=== PATIENT | female | born 1955 | race Caucasian/White ===

== ENCOUNTER → 2017-01-20 | Outpatient (CLI) | payer OTHER ==
[~2017-01-20] MED LIST: ATARAX PO; CHLORTHALIDONE25 MG PO; ENDOCET 5-3251 EACH PO; GABAPENTIN300 M2 PO; KEFLEX500 M2 PO; LISINOPRIL PO; PERCOCET 5/321 UDTAB PO; PROZAC PO; PROZAC10 M1 PO; XARELTO10 MG PO
--- NOTE | ~2017-01-20 | NM71 ---
[facility] A Service of [facility] & [facility] RADIOLOGY TEXT RESULTS PATIENT: TRACY VILLAFANA LOCATION: [facility] : 53 UNIT #: [id number] AGE: [address]: Dima PerezM SEX: F ORDER DR: [id number] [facility] [address] [place], [place] [address] [id number] O MR#: [id number] Acc #: [id number] NAME: TRACY VILLAFANA : 1955 SEX: F STUDY DATE/TIME: 01/20/2017 12:51 UNIT: [facility] ROOM: STUDY DESCRIPTION: MN Radiopharm Loc Inflam Limit Attending Physician: Dima Perez D.P.M. Referring Physician: Dima Perez D.P.M. Ordering Physician: Dima Perez D.P.M. Primary Care Physician: Generic Doctor Not In System MEDICAL IMAGING REPORT This report is preliminary unless electronic signature is present EXAM Technetium-labeled white blood cell scan of the ankles and feet, 01/20/2017. HISTORY Order states osteomyelitis, left heel. History sheet states fell 2 years ago. Crushed both heels. Right heel has at least 1 screw. The left foot keep needing surgery. No screws in the left foot. 3 left foot surgeries, 2 years ago, September 2015, and 1 year ago. 1 right foot surgery 2 years ago. Technologist reports there is a small opening at the surgical incision in the posterior left heel in the region of the Achilles tendon insertion. The wound reopened spontaneously 2-1/2 weeks ago. COMPARISON Left foot radiographs 06/07/2016, left foot radiographs 03/02/2016; MRI left ankle/hindfoot 09/14/2015. TECHNIQUE The patient received 22.3 mCi technetium-99m Ceretec-labeled white blood cells was injected intravenously and 1-hour and 4-hour delayed images were obtained. FINDINGS There is a small localized focus of abnormal uptake on both the 1- and 4-hour images in the lateral hindfoot difficult to accurately localize anatomically, but favored to be in the region of the upper posterior half of the calcaneus probably at or just distal to the Achilles insertion. Findings are compatible with inflammatory infectious process in the skin and/or soft tissues in this region. There is no definitive or high-grade uptake to definitively suggest osteomyelitis of the calcaneus. Involvement of the periosteum or cortex is not able to be fully excluded given inherent low resolution of planar white blood cell studies. You could consider MRI correlation, if clinically warranted. [facility] A Service of [facility] RADIOLOGY TEXT RESULTS PATIENT: TRACY VILLAFANA LOCATION: [facility] : 53 UNIT #: [id number] AGE: [address]: Dima Perez DPM SEX: F ORDER DR: The remainder of the ankles and feet bilaterally are normal. IMPRESSION Small focus of superficial uptake in the posterior left heel, detailed above is favored to be in the skin and soft tissues. There is no definitive evidence of osteomyelitis. Given inherent low resolution of planar white blood cell imaging, periosteal or cortical involvement is not fully excluded. You could consider followup MRI, which could be compared to a prior MRI of 09/14/2015 for improved localization and specificity. Dictated by... Bernice Johnson M.D. THIS IS AN ELECTRONICALLY VERIFIED REPORT Bernice Johnson M.D. at 01/22/2017 10:19 AM Yasmine TD: 01/21/2017 11:11 JOB #: [id number] MEDICAL IMAGING REPORT Page 1 of 1 COPY
== END | disposition home or self-care (01) ==
LOC: CNUC 06:27
DX: M86.9 Osteomyelitis, unspecified (principal)
CPT/HCPCS: 78805; A9569

== ENCOUNTER 2017-03-08 09:01 | Emergency (ER) | payer OTHER ==
--- NOTE | ~2017-03-08 | CR181 ---
[facility] A Service of [facility] RADIOLOGY TEXT RESULTS PATIENT: TRACY VILLAFANA LOCATION: [facility] : 53 UNIT #: [id number] AGE: [address]: Will Julien MD SEX: F ORDER DR: [id number] [facility] [address] [place], [place] [address] [id number] MR#: [id number] Acc #: [id number] NAME: TRACY VILLAFANA. : 1955 SEX: F STUDY DATE/TIME: 03/08/2017 10:28 UNIT: [facility] ROOM: STUDY DESCRIPTION: CR Lumbar Spine 2 or 3 Views Attending Physician: Will Julien M.D. Ordering Physician: Will Julien M.D. Primary Care Physician: Domingo Garcia M.D. MEDICAL IMAGING REPORT This report is preliminary unless electronic signature is present EXAM Lumbar spine, 3 views COMPARISON None. HISTORY 62-year-old female with low back pain after falling and twisting her back 6 days ago. FINDINGS There is mild rotatory scoliosis of the lumbar spine. Evaluation of the lumbar spine is limited by overlapping bowel gas and stool. There is a large phlebolith in the left pelvis. No evidence of spondylolisthesis. Minimal disc height loss at L5-S1. There also appears to be sclerosis of the facets at L4-L5 and L5-S1. Mild disc height loss at L1-L2 as well. IMPRESSION 1. No evidence of acute fracture or subluxation of the lumbar spine. 2. Mild multilevel degenerative changes as described in the body of the report. Dictated by... Fito Melendez M.D. THIS IS AN ELECTRONICALLY VERIFIED REPORT Fito Melendez M.D. at 03/09/2017 12:27 PM BLM/pcl TD: 03/08/2017 14:32 [facility] A Service [facility] RADIOLOGY TEXT RESULTS PATIENT: TRACY VILLAFANA LOCATION: [facility] #: [id number] : 53 UNIT #: [id number] AGE: [address]: Will Julien MD SEX: F ORDER DR: JOB #: [id number] MEDICAL IMAGING REPORT Page 1 of 1 COPY
[~2017-03-08 09:01] MED LIST changes: -LISINOPRIL PO; -PERCOCET 5/321 UDTAB PO; -PROZAC10 M1 PO; -XARELTO10 MG PO
[2017-07-01] MEDS ORDERED: LISINOPRIL PO (02:11)
[2017-07-01] MEDS ORDERED: PROZAC10 M1 PO (02:11)
[2017-07-02] MEDS ORDERED: XARELTO10 MG PO (11:06)
[2017-07-02] MEDS ORDERED: PERCOCET 5/321 UDTAB PO (11:07)
== END 2017-03-08 11:43 | disposition home or self-care (01) ==
LOC: CED 09:01
DX: M54.5 Low back pain (principal); I10 Essential (primary) hypertension; F41.9 Anxiety disorder, unspecified; F32.9 Major depressive disorder, single episode, unspecified; Z90.49 Acquired absence of other specified parts of digestive tract; Z98.51 Tubal ligation status; Z88.5 Allergy status to narcotic agent; Z88.8 Allergy status to other drugs, medicaments and biological substances
CPT/HCPCS: 72100; 99283; J2270